=== PATIENT | female | born 1985 | race Caucasian/White ===

== ENCOUNTER 2017-04-16 10:43 | Emergency (ER) | payer OTHER | END 2017-04-16 12:18 | disposition home or self-care (01) | LOC: E/R 10:43 | DX: J02.9 Acute pharyngitis, unspecified (principal) | CPT/HCPCS: 99283; Z7502 ==

== ENCOUNTER 2018-03-29 13:34 | Emergency (ER) | payer SELFPAY, OTHER | END 2018-03-29 15:58 | disposition left against medical advice (07) | LOC: FTE 15:58 | DX: Z53.21 Procedure and treatment not carried out due to patient leaving prior to being seen by health care provider (principal) ==